=== PATIENT | female | born 1990 | race Caucasian/White ===

== ENCOUNTER 2017-10-15 21:59 | Emergency (ER) ==
[2017-10-15 22:18] VITALS: TEMP 98.6; BMI 42.2
--- NOTE | 2017-10-15 22:22 | ED.PDOC ---
General ED Provider: Dr. CHELSEA MOYA Chief Complaint: Bite Stated Complaint: Insect bite on the right thigh, red, swelling, Itching. dont know whats bite, but think spider. Time Seen by Physician: 22:20 Mode of Arrival: Walk-In Information Source: Patient Primary Care Provider: RENO FONTAINE Nursing and Triage Documentation Reviewed and Agree: Yes Reviewed sepsis parameters & appropriate labs ordered?: Yes System Inflammatory Response Syndrome: Not Applicable Sepsis Protocol: For patient's 13 years and over: Temp is 96.8 and below OR 101 and greater Pulse >90 BPM Resp >20/minute Acutely Altered Mental Status Are patient's symptoms suggestive of a new infection, such as: -Pneumonia -Skin, Soft Tissue -Endocarditis -UTI -Bone, Joint Infection -Implantable Device -Acute Abdominal Infection -Wound Infection -Meningitis -Blood Stream Catheter Infection -Unknown Skin Complaint Exam - Skin/Soft Tissue Complaint/Exam Symptoms Are: Still present Timing: Constant Initial Severity: Mild Current Severity: Mild Character: Reports: Redness, Swelling, Raised, Painful Aggravating: Reports: Touch Alleviating: Reports: None Associated Signs and Symptoms: Reports: Tenderness. Denies: Fever, Chills, Itching, Drainage, Bruising, Red streaks, Joint swelling Related Surgical History: Reports: None Skin Findings: Present: Erythema. Absent: Induration, Fluctuant mass Differential Diagnoses: Cellulitis, Other (spider bite) Review of Systems - Review Of Systems Constitutional: Reports: No symptoms Eyes: Reports: No symptoms Ears, Nose, Mouth, Throat: Reports: No symptoms Respiratory: Reports: No symptoms Cardiac: Reports: No symptoms GI: Reports: No symptoms : Reports: No symptoms Musculoskeletal: Reports: No symptoms Skin: Reports: No symptoms Neurological: Reports: No symptoms Endocrine: Reports: No symptoms Hematologic/Lymphatic: Reports: No symptoms All Other Systems: Reviewed and Negative Past Medical History - Past Medical History Previously Healthy: Yes Endocrine: Reports: Unknown Cardiovascular: Reports: Hypertension Respiratory: Reports: Unknown Hematological: Reports: Unknown Gastrointestinal: Reports: None, Unknown Genitourinary: Reports: Unknown Neuro/Psych: Reports: Unknown Musculoskeletal: Reports: Unknown Cancer: Reports: Unknown Last Menstrual Period: now - Surgical History General Surgical History: Reports: Unknown - Family History Family History: Reports: Unknown - Social History Smoking Status: Never smoker Hx Substance Use: No Alcohol Screening: Occasionally - Immunizations Tetanus Shot up to Date: No Physical Exam - Physical Exam Appearance: Well-appearing, No pain distress, Well-nourished Eyes: AWILDA, EOMI, Conjunctiva clear ENT: Ears normal, Nose normal, Oropharynx normal Respiratory: Airway patent, Breath sounds clear, Breath sounds equal, Respirations nonlabored Cardiovascular: RRR, Pulses normal, No rub, No murmur GI/: Soft, Nontender, No masses, Bowel sounds normal, No Organomegaly Musculoskeletal: Normal strength, ROM intact, No edema, No calf tenderness Skin: Warm, Dry, Normal color Neurological: Sensation intact, Motor intact, Reflexes intact, Cranial nerves intact, Alert, Oriented Psychiatric: Affect appropriate, Mood appropriate Critical Care Note - Critical Care Note Total Time (mins): 20 Course - Course Vital Signs: Temp Pulse Resp BP Pulse Ox 10/15/17 22:06 98.6 F 102 H 20 136/102 H 98 Departure - Departure Time of Disposition: 22:22 Disposition: HOME SELF-CARE Discharge Problem: Spider bite Qualifiers: Encounter type: initial encounter Injury intent: accidental or unintentional Qualified Code(s): T63.301A - Toxic effect of unspecified spider venom, accidental (unintentional), initial encounter Instructions: Insect Bite or Sting (ED) Condition: Stable Pt referred to PMD for follow-up: Yes IPMP verified?: No Additional Instructions: Tylenol prn skin hygiene f/u with PMD in 2-3 days Prescriptions: Cephalexin [Keflex] 500 mg PO Q12HR #14 capsule Clindamycin HCl 300 mg PO TID #15 capsule Prednisone 10 mg PO BIDWM #14 tablet Allergies/Adverse Reactions: Allergies Penicillins Adverse Reaction (Verified 10/15/17 22:20) Pt states is not aware of a reaction, but family told her not to take penicillin so has always listed it as an allergy. Home Medications: Ambulatory Orders Alprazolam [Xanax] 0.25 mg PO TID PRN 03/13/16 Levothyroxine Sodium [Synthroid] 50 mcg PO QDAC 03/13/16 Pantoprazole Sodium [Protonix] 40 mg PO DAILY 03/13/16 Sertraline HCl [Zoloft] 150 mg PO BEDTIME 03/13/16 Cephalexin [Keflex] 500 mg PO Q12HR #14 capsule 10/15/17 Clindamycin HCl 300 mg PO TID #15 capsule 10/15/17 Prednisone 10 mg PO BIDWM #14 tablet 10/15/17 Disposition Discussed With: Patient
[2017-10-15] MEDS ORDERED: DECADRON 4 MG/ML SDV IM STA (22:23)
[2017-10-15] MEDS ORDERED: CLEOCIN PO STA (22:23)
[2017-10-15 22:47] VITALS: BP 124/89
== END 2017-10-15 22:50 | disposition home or self-care (01) ==
LOC: ED 21:59
DX: T63.301A Toxic effect of unspecified spider venom, accidental (unintentional), initial encounter (principal)
CPT/HCPCS: 96372; 99282